=== PATIENT | male | born 1960 | race Hispanic/Latino ===

== ENCOUNTER → 2019-07-21 | Outpatient (CLI) | payer OTHER | END | disposition home or self-care (01) | LOC: RAH 14:41 | PROVIDERS: ATTEND Nurse Practitioner Adult Health | DX: Z13.6 Encounter for screening for cardiovascular disorders (principal) | CPT/HCPCS: 75571 ==

== ENCOUNTER 2020-12-14 14:11 | Inpatient (IN) | payer OTHER ==
[~2020-12-14] VITALS: Ht 167.6 cm; Wt 85.9 kg
[2020-12-14] MEDS ORDERED: ASPIRIN 325MG TAB PO ONE (14:30)
[2020-12-14] MEDS ORDERED: NITROGLYCERIN 1GM OINT 1 INCH/1GM TD ONE (14:30)
[2020-12-14 14:58] LABS: BASOPHILS % (AUTO) 0.4 % (0.0-5.0); EOSINOPHILS % (AUTO) 3.6 % (0.0-8.0); HEMATOCRIT 41.5 % (42-54); LYMPHOCYTES % (AUTO) 25.6 % (21.0-51.0); MEAN CORPUSCULAR HEMOGLOBIN 30.3 pg (27.0-33.0); MEAN CORPUSCULAR HGB CONC 34.7 g/dL (32.0-36.0); MEAN CORPUSCULAR VOLUME 87.4 fL (79-99); MONOCYTES % (AUTO) 8.1 % (3.0-13.0); NEUTROPHILS % (AUTO) 62.2 % (40.0-77.0); PLATELET COUNT (AUTO) 143 K/uL (130-400); RED BLOOD CELL COUNT(AUTO) 4.75 MIL/uL (4.50-6.20); RED CELL DISTRIBUTION WIDTH 11.8 % (11.0-15.5); WHITE BLOOD COUNT (AUTO) 7.7 K/uL (4.8-10.8)
[2020-12-14 15:06] LABS: CREATININE 1.1 mg/dL (0.5-1.5); POTASSIUM 3.9 mmol/L (3.5-5.1)
[2020-12-14 15:11] LABS: ALBUMIN 4.2 g/dL (3.5-5.0); BILIRUBIN,TOTAL 0.4 mg/dL (0.2-1.0); INR 0.98 (0.85-1.15); PROTHROMBIN TIME 10.7 SEC (9.6-11.6); TOTAL PROTEIN, SERUM 7.1 g/dL (6.0-8.3)
[2020-12-14 15:12] LABS: PARTIAL THROMBOPLASTIN TIME 25.7 SEC (26.3-35.5)
[2020-12-14 15:19] VITALS: BP 150/79
[2020-12-14 16:20] LABS: B-TYPE NATRIURETIC PEPTIDE 17 pg/mL (0-100)
[2020-12-14 16:39] VITALS: BP 136/78
[2020-12-14] MEDS ORDERED: ACETAMINOPHEN 325 MG TAB PO PRN (17:00)
[2020-12-14] MEDS ORDERED: HYDRALAZINE 20MG/ML VIAL IV PRN (17:00)
[2020-12-14] MEDS ORDERED: DEXTROSE 50%-WATER 50 ML DISP.SYRIN IV PRN (17:00)
[2020-12-14] MEDS ORDERED: NITROGLYCERIN 0.4 MG SL TAB SL PRN (17:00)
[2020-12-14] MEDS ORDERED: MAG/ALUM/SIMETH 30 ML UDCUP PO PRN (17:00)
[2020-12-14] MEDS ORDERED: ONDANSETRON 4MG INJ IV PRN (17:00)
[2020-12-14] MEDS ORDERED: MORPHINE 2 MG SYG IV PRN (17:00)
[2020-12-14] MEDS ORDERED: GLUCAGON 1MG KIT 1 MG ML IM PRN (17:00)
[2020-12-14] MEDS ORDERED: GUAIFENESIN-DM 200/20 MG 10 ML PO PRN (17:00)
[2020-12-14] MEDS ORDERED: LACTULOSE 20 GM/30 ML UDCUP PO PRN (17:00)
[2020-12-14] MEDS ORDERED: DIPHENHYDRAMINE HCL 25 MG CAPSULE PO PRN (17:00)
[2020-12-14 17:11] LABS: CHOLESTEROL 150 mg/dL (<200); HDL CHOLESTEROL 46 mg/dL (29-71); HEMOGLOBIN A1C 6.6 % (4.0-6.0); LDL DIRECT 77 mg/dL (0-99); TRIGLYCERIDES 165 mg/dL (30-200)
[2020-12-14 20:15] VITALS: BP 144/76
[2020-12-14 20:54] LABS: BILIRUBIN,URINE Negative (NEGATIVE); COLOR,URINE Yellow (YELLOW); GLUCOSE, URINE (UA) Negative (NEGATIVE); KETONES,URINE Negative (NEGATIVE); LEUKOCYTE ESTERASE ,URINE Negative (NEGATIVE); NITRATE,URINE Negative (NEGATIVE); OCCULT BLOOD,URINE Negative (NEGATIVE); PROTEIN,URINE Negative (NEGATIVE); UROBILINOGEN,URINE 0.2 mg/dL (0.2-1.0)
[2020-12-14 20:55] LABS: APPEARANCE,URINE CLEAR (CLEAR)
[2020-12-14] MEDS ORDERED: ATORVASTATIN 40 MG TABLET PO SCH (21:00)
[2020-12-14] MEDS: METOPROLOL TARTRATE 25 MG TAB PO SCH (22:17)
[2020-12-14] MEDS: FAMOTIDINE 20MG VIAL IV SCH (22:17)
[2020-12-14] MEDS: INSULIN HUMULIN R 100 UNIT/ML 3ML SQ SCH (22:19)
[2020-12-14] MEDS: ENOXAPARIN SODIUM 80 MG/0.8 ML SQ SCH (22:19)
[2020-12-14 22:32] VITALS: BP 156/76
[2020-12-14 22:40] LABS: CREATINE KINASE, TOTAL 192 U/L (21-232); MYOGLOBIN 54 ng/mL (10-92); TROPONIN I < 0.04 ng/mL (0.00-0.06)
[2020-12-14 23:00] VITALS: BP 155/73
[2020-12-14] MEDS ORDERED: AMLO-258 PO (23:49)
[2020-12-14] MEDS ORDERED: LISI40TA9 PO (23:49)
[2020-12-14] MEDS ORDERED: NITR0.4T50 SL (23:49)
[2020-12-14] MEDS ORDERED: ATOR20TA65 PO (23:49)
[2020-12-14] MEDS ORDERED: METO-391 PO (23:49)
[2020-12-14] MEDS ORDERED: ISOS30TA92 PO (23:49)
[2020-12-15 04:00] VITALS: BP 126/74
[2020-12-15 05:47] LABS: CREATINE KINASE, TOTAL 172 U/L (21-232); MYOGLOBIN 55 ng/mL (10-92); TROPONIN I < 0.04 ng/mL (0.00-0.06)
[2020-12-15] MEDS: INSULIN HUMULIN R 100 UNIT/ML 3ML SQ SCH ×3 (07:16→16:30)
[2020-12-15] MEDS ORDERED: NICARDIPINE 25MG INJ IV ONE (07:17)
[2020-12-15] MEDS ORDERED: MIDAZOLAM HCL 1 MG/ML 2ML VIAL ONE (07:17)
[2020-12-15] MEDS ORDERED: NITROGLYCERIN 2 MG VIAL IV ONE (07:17)
[2020-12-15] MEDS ORDERED: LIDOCAINE HCL 400MG/20ML VIAL ONE (07:17)
[2020-12-15] MEDS ORDERED: IOHEXOL 350 MG/ML 100ML INFUS..BTL IV ONE (07:17)
[2020-12-15] MEDS ORDERED: FENTANYL CITRATE PF 50 MCG/1 ML 2ML VIAL ONE (07:17)
[2020-12-15] MEDS ORDERED: HEPARIN 10,000 UNIT/10ML (1,000 UNIT/ML) VIAL ONE (07:17)
[2020-12-15] MEDS ORDERED: IOHEXOL-350 50ML VIAL IV ONE (07:17)
[2020-12-15 08:00] VITALS: BP 119/77
[2020-12-15] MEDS ORDERED: ADENOSINE 90MG VIAL IV ONE (08:07)
[2020-12-15] MEDS ORDERED: ASPIRIN 325MG EC TAB PO ONE (08:33)
[2020-12-15] MEDS ORDERED: CLOPIDOGREL 300MG TAB ONE (08:33)
[2020-12-15] MEDS: ENOXAPARIN SODIUM 80 MG/0.8 ML SQ SCH (09:00)
[2020-12-15] MEDS ORDERED: ENOXAPARIN SODIUM 40 MG/0.4 ML SYRINGE SQ SCH (09:00)
[2020-12-15] MEDS ORDERED: ASPIRIN 81 MG EC TAB PO SCH (09:00)
[2020-12-15] MEDS ORDERED: 0.9%NACL 1000ML 1,000 ML IV SCH (09:30)
[2020-12-15] MEDS: METOPROLOL TARTRATE 25 MG TAB PO SCH (10:28)
[2020-12-15] MEDS: FAMOTIDINE 20MG VIAL IV SCH (10:32)
[2020-12-15 12:00] VITALS: BP 136/82
[2020-12-15] MEDS ORDERED: ASPI-1005 PO (12:18)
[2020-12-15] MEDS ORDERED: CLOP75TA14 PO (12:18)
[2020-12-15] MEDS ORDERED: ATOR40TA69 PO (12:18)
[2020-12-15] MEDS ORDERED: PANT40TA PO (12:18)
[2020-12-15] MEDS ORDERED: METO25TA6 PO (12:18)
[2020-12-15] MEDS ORDERED: LOSA50TA64 PO (12:18)
[2020-12-15 14:59] LABS: TROPONIN I 0.04 ng/mL (0.00-0.06)
[2020-12-15 16:27] VITALS: BP 130/71
[2020-12-16] MEDS ORDERED: CLOPIDOGREL 75MG TAB PO SCH (09:00)
[2020-12-16] MEDS ORDERED: LOSARTAN 50 MG TABLET PO SCH (09:00)
== END 2020-12-15 17:55 | disposition home or self-care (01) | DRG 247 ==
LOC: EDH 14:11 → EDHIP 14:12 → 4DH 21:46
PROVIDERS: ADMIT Internal Medicine; ATTEND Internal Medicine
PROC: 027034Z Dilation of Coronary Artery, One Artery with Drug-eluting Intraluminal Device, Percutaneous Approach (ICD-10-PCS; principal; 2020-12-15)
PROC: B2101ZZ Fluoroscopy of Single Coronary Artery using Low Osmolar Contrast (ICD-10-PCS; 2020-12-15)
PROC: 4A023N7 Measurement of Cardiac Sampling and Pressure, Left Heart, Percutaneous Approach (ICD-10-PCS; 2020-12-15)
PROC: 4A033BC Measurement of Arterial Pressure, Coronary, Percutaneous Approach (ICD-10-PCS; 2020-12-15)
DX: I20.0 Unstable angina (principal); E11.9 Type 2 diabetes mellitus without complications; I10 Essential (primary) hypertension; E78.5 Hyperlipidemia, unspecified; F17.200 Nicotine dependence, unspecified, uncomplicated; E78.00 Pure hypercholesterolemia, unspecified; F10.10 Alcohol abuse, uncomplicated; Z98.61 Coronary angioplasty status; Z82.49 Family history of ischemic heart disease and other diseases of the circulatory system
CPT/HCPCS: 36415; 71045; 80053; 80061; 81003; 82550; 82948; 83036; 83874; 83880; 84484; 85025; 85610; 85730; 93005; 93458; 93571; 99156; 99157; C1769; C1887; C9600; G0378; J0153; J1644; J1650; J1815; J2250; J3010; J3490; Q9967

== ENCOUNTER 2023-03-18 22:53 | Emergency (ER) | payer BC ==
[~2023-03-18] VITALS: Ht 167.6 cm; Wt 74.8 kg
[~2023-03-18 22:53] MED LIST: ALLO100T PO; ASPI-1005 PO; ATOR40TA69 PO; COLC0.6T73 PO; DICL20GE TP; FOLI1 PO; INSLAN SQ; ISOS30TA92 PO; LEVO750T39 PO; LOSA100T59 PO; METO50TA18 PO; NUTR1PAC14 PO; PANT40TA54 PO; THIA100T91 PO
[2023-03-18] MEDS ORDERED: 0.9%NACL 1000ML 1,000 ML IV ONE (23:30)
[2023-03-19 00:13] LABS: BASOPHILS # (AUTO) 0.01 K/uL (0.00-0.20); BASOPHILS % (AUTO) 0.1 % (0.0-5.0); EOSINOPHILS # (AUTO) 0.19 K/uL (0.00-0.70); EOSINOPHILS % (AUTO) 2.5 % (0.0-8.0); IMMATURE GRANULOCYTE ABSOLUTE 0.02 K/uL (0-1); LYMPHOCYTES # (AUTO) 2.2 K/uL (1.0-4.8); LYMPHOCYTES % (AUTO) 29.3 % (21.0-51.0); MEAN CORPUSCULAR HEMOGLOBIN 27.3 pg (27.0-33.0); MEAN CORPUSCULAR HGB CONC 32.3 g/dL (32.0-36.0); MEAN CORPUSCULAR VOLUME 84.5 fL (79-99); MONOCYTES # (AUTO) 0.5 K/uL (0.1-1.0); MONOCYTES % (AUTO) 5.9 % (3.0-13.0); NEUTROPHILS # (AUTO) 4.7 K/uL (1.8-7.7); NEUTROPHILS % (AUTO) 61.9 % (40.0-77.0); PLATELET COUNT (AUTO) 198 K/uL (130-400); RED BLOOD CELL COUNT(AUTO) 4.14 MIL/uL (4.50-6.20); RED CELL DISTRIBUTION WIDTH 15.7 % (11.0-15.5); WHITE BLOOD COUNT (AUTO) 7.6 K/uL (4.8-10.8)
[2023-03-19] MEDS ORDERED: HYDROMORPHONE 0.5 MG SYG (0.5MG/0.5ML) IVP ONE (00:30)
[2023-03-19 00:32] LABS: CREATININE 1.2 mg/dL (0.5-1.5); POTASSIUM 3.4 mmol/L (3.5-5.1)
[2023-03-19 00:37] LABS: ALBUMIN 4.1 g/dL (3.5-5.0); BILIRUBIN,TOTAL 0.4 mg/dL (0.2-1.0); TOTAL PROTEIN, SERUM 8.1 g/dL (6.0-8.3)
[2023-03-19] MEDS ORDERED: IOHEXOL 350 MG/ML 100ML INFUS..BTL IV ONE (00:51)
[2023-03-19 02:32] LABS: APPEARANCE,URINE CLEAR (CLEAR); BILIRUBIN,URINE NEGATIVE (NEGATIVE); COLOR,URINE COLORLESS (YELLOW); GLUCOSE, URINE (UA) NEGATIVE (NEGATIVE); KETONES,URINE NEGATIVE (NEGATIVE); LEUKOCYTE ESTERASE ,URINE NEGATIVE Leu/uL (NEGATIVE); NITRATE,URINE NEGATIVE (NEGATIVE); OCCULT BLOOD,URINE NEGATIVE (NEGATIVE); PROTEIN,URINE NEGATIVE (NEGATIVE); UROBILINOGEN,URINE 0.2 mg/dL (0.2-1.0)
[2023-03-19 02:34] LABS: ADD UA MICROSCOPIC NO
[2023-03-19 03:32] VITALS: BP 147/78; PULSE 86; RESP 18; O2SAT 99
== END 2023-03-19 03:36 | disposition home or self-care (01) ==
LOC: EDH 22:53
DX: K80.20 Calculus of gallbladder without cholecystitis without obstruction (principal); L02.211 Cutaneous abscess of abdominal wall; E78.00 Pure hypercholesterolemia, unspecified; I10 Essential (primary) hypertension; F17.200 Nicotine dependence, unspecified, uncomplicated; Z79.1 Long term (current) use of non-steroidal anti-inflammatories (NSAID); Z79.82 Long term (current) use of aspirin; Z79.899 Other long term (current) drug therapy
CPT/HCPCS: 99285; 74177; 82550; 84484; 80053; 85025; 87040 ×2; 83605; 81003; 36415 ×2; 93005; 96374; 76705; J7030; J1170; Q9967

== ENCOUNTER 2023-04-05 13:40 | Observation (INO) | payer BC ==
[~2023-04-05] VITALS: Ht 167.6 cm; Wt 74.8 kg
[2023-04-05 15:07] LABS: BASOPHILS # (AUTO) 0.02 K/uL (0.00-0.20); BASOPHILS % (AUTO) 0.3 % (0.0-5.0); EOSINOPHILS # (AUTO) 0.18 K/uL (0.00-0.70); EOSINOPHILS % (AUTO) 2.6 % (0.0-8.0); HEMATOCRIT 35.8 % (42-54); IMMATURE GRANULOCYTE ABSOLUTE 0.02 K/uL (0-1); LYMPHOCYTES # (AUTO) 1.5 K/uL (1.0-4.8); MEAN CORPUSCULAR HEMOGLOBIN 27.5 pg (27.0-33.0); MEAN CORPUSCULAR HGB CONC 32.7 g/dL (32.0-36.0); MEAN CORPUSCULAR VOLUME 84.2 fL (79-99); MONOCYTES # (AUTO) 0.4 K/uL (0.1-1.0); MONOCYTES % (AUTO) 5.2 % (3.0-13.0); NEUTROPHILS # (AUTO) 4.9 K/uL (1.8-7.7); NEUTROPHILS % (AUTO) 70.6 % (40.0-77.0); PLATELET COUNT (AUTO) 195 K/uL (130-400); RED BLOOD CELL COUNT(AUTO) 4.25 MIL/uL (4.50-6.20); RED CELL DISTRIBUTION WIDTH 14.7 % (11.0-15.5); WHITE BLOOD COUNT (AUTO) 6.9 K/uL (4.8-10.8)
[2023-04-05 15:20] LABS: CREATININE 1.1 mg/dL (0.5-1.5); POTASSIUM 3.7 mmol/L (3.5-5.1)
[2023-04-05 15:25] LABS: ALBUMIN 3.7 g/dL (3.5-5.0); BILIRUBIN,TOTAL 0.3 mg/dL (0.2-1.0); TOTAL PROTEIN, SERUM 7.3 g/dL (6.0-8.3)
[2023-04-05] MEDS ORDERED: 0.9% NACL 500ML IV.SOLN 500 ML IV ONE (17:30)
[2023-04-05] MEDS ORDERED: IOHEXOL-350 75 ML VIAL IV ONE (18:18)
[2023-04-05 19:13] LABS: APPEARANCE,URINE CLEAR (CLEAR); BILIRUBIN,URINE NEGATIVE (NEGATIVE); COLOR,URINE LIGHT-YELLOW (YELLOW); GLUCOSE, URINE (UA) NEGATIVE (NEGATIVE); KETONES,URINE NEGATIVE (NEGATIVE); LEUKOCYTE ESTERASE ,URINE NEGATIVE Leu/uL (NEGATIVE); NITRATE,URINE NEGATIVE (NEGATIVE); OCCULT BLOOD,URINE NEGATIVE (NEGATIVE); PROTEIN,URINE NEGATIVE (NEGATIVE); UROBILINOGEN,URINE 0.2 mg/dL (0.2-1.0)
[2023-04-05 19:23] LABS: ADD UA MICROSCOPIC NO
[2023-04-05] MEDS ORDERED: LACTATED RINGERS 1000ML 1,000 ML IV ONE (21:00)
[2023-04-05] MEDS ORDERED: ZOSYN 3.375GM +NS 50ML IV ONE (21:00)
[2023-04-05] MEDS ORDERED: ONDANSETRON 4MG INJ IV PRN (22:30)
[2023-04-05] MEDS ORDERED: KETOROLAC 15MG/ML VIAL (15MG/ML) IV PRN (22:30)
[2023-04-05] MEDS ORDERED: GLUCAGON 1MG KIT 1 MG ML IM PRN (22:30)
[2023-04-05] MEDS ORDERED: MAGNESIUM 2GM PREMIX 50ML 50 ML IV PRN (22:30)
[2023-04-05] MEDS ORDERED: DEXTROSE 50%-WATER 50 ML DISP.SYRIN IV PRN (22:30)
[2023-04-05] MEDS ORDERED: POTASSIUM CHLORIDE 20MEQ/100ML 100 ML IV PRN (22:30)
[2023-04-05] MEDS: LACTATED RINGERS 1000ML 1,000 ML IV SCH (22:30)
[2023-04-05] MEDS: ZOSYN 3.375GM +NS 50ML IVPB SCH (22:30)
[2023-04-06 01:30] VITALS: BP 145/68; PULSE 58; RESP 18
[2023-04-06] MEDS: LACTATED RINGERS 1000ML 1,000 ML IV SCH (01:44)
[2023-04-06 03:40] VITALS: BP 138/81; PULSE 64; RESP 17
[2023-04-06] MEDS: ZOSYN 3.375GM +NS 50ML IVPB SCH ×2 (05:47→13:30)
[2023-04-06] MEDS: INSULIN HUMULIN R 100 UNIT/ML 3ML SQ SCH ×2 (05:47→11:30)
[2023-04-06 05:51] LABS: BASOPHILS # (AUTO) 0.01 K/uL (0.00-0.20); BASOPHILS % (AUTO) 0.2 % (0.0-5.0); EOSINOPHILS % (AUTO) 4.1 % (0.0-8.0); HEMATOCRIT 34.2 % (42-54); IMMATURE GRANULOCYTE ABSOLUTE 0.01 K/uL (0-1); LYMPHOCYTES # (AUTO) 1.6 K/uL (1.0-4.8); LYMPHOCYTES % (AUTO) 33.6 % (21.0-51.0); MEAN CORPUSCULAR HEMOGLOBIN 26.8 pg (27.0-33.0); MEAN CORPUSCULAR HGB CONC 31.9 g/dL (32.0-36.0); MONOCYTES # (AUTO) 0.3 K/uL (0.1-1.0); NEUTROPHILS # (AUTO) 2.7 K/uL (1.8-7.7); NEUTROPHILS % (AUTO) 54.9 % (40.0-77.0); PLATELET COUNT (AUTO) 160 K/uL (130-400); RED BLOOD CELL COUNT(AUTO) 4.07 MIL/uL (4.50-6.20); RED CELL DISTRIBUTION WIDTH 14.6 % (11.0-15.5); WHITE BLOOD COUNT (AUTO) 4.9 K/uL (4.8-10.8)
[2023-04-06 06:03] LABS: INR < 0.93 (0.85-1.15); PROTHROMBIN TIME 10.7 SEC (9.6-11.6)
[2023-04-06 06:05] LABS: PARTIAL THROMBOPLASTIN TIME 29.2 SEC (26.3-35.5)
[2023-04-06 06:18] LABS: ALBUMIN 3.4 g/dL (3.5-5.0); BILIRUBIN,TOTAL 0.4 mg/dL (0.2-1.0); CREATININE 1.1 mg/dL (0.5-1.5); MAGNESIUM 1.8 mg/dL (1.80-2.40); POTASSIUM 3.9 mmol/L (3.5-5.1); TOTAL PROTEIN, SERUM 6.8 g/dL (6.0-8.3)
[2023-04-06 08:00] VITALS: BP 135/82; PULSE 61; RESP 18
[2023-04-06 09:00] VITALS: O2SAT 99
[2023-04-06] MEDS ORDERED: FAMOTIDINE 20MG VIAL IV SCH (09:00)
[2023-04-06 12:00] VITALS: BP 148/77; PULSE 58; RESP 18
== END 2023-04-06 16:30 | disposition home or self-care (01) ==
LOC: EDH 13:40 → INTOOBSV 22:16 → EDHIP 22:16 → 3BH 04-06 01:24
PROVIDERS: ADMIT Hospitalist; ATTEND Hospitalist
DX: T81.30XA Disruption of wound, unspecified, initial encounter (principal); R10.12 Left upper quadrant pain; I10 Essential (primary) hypertension; D64.9 Anemia, unspecified; K63.2 Fistula of intestine; I25.10 Atherosclerotic heart disease of native coronary artery without angina pectoris; E11.9 Type 2 diabetes mellitus without complications; E78.5 Hyperlipidemia, unspecified; I48.91 Unspecified atrial fibrillation; K57.30 Diverticulosis of large intestine without perforation or abscess without bleeding; Z95.5 Presence of coronary angioplasty implant and graft; Y92.89 Other specified places as the place of occurrence of the external cause
CPT/HCPCS: 99285; 74177; 96365; 96361; 80053 ×2; 85025 ×2; 87040 ×2; 83605 ×2; 81003; 36415 ×2; 93005; 96366; 96375; 83735; 85610; 85730; 82948 ×2; 86140; 84145; J2543 ×3; Q9967; G0378; J7120; J3490